=== PATIENT | male | born 1965 | race African-American/Black ===

== ENCOUNTER 2016-08-17 21:11 | Inpatient (IN) ==
[2016-08-17] MEDS ORDERED: SODIUM CHLORIDE 0.9% 1,000 ML IV STA (23:52)
[2016-08-17] MEDS ORDERED: MORPHINE 2 MG/1 ML SYRINGE IV STA (23:53)
[2016-08-18 00:40] LABS: Basophils % 0.2 % (0.0-0.8); Eosinophils % 0.1 % (0.00-10.9); Hematocrit 31.2 VOL% (42.0-52.0); Hemoglobin 10.7 GM/DL (14.0-18.0); Immature Granulocytes % 0.5 %; Immature Granulocytes Absolute 0.06 #; Lymphocytes # 1.8 10*3/uL (1.4-4.0); Lymphocytes % 15.9 % (21.2-54.2); Mean Corpuscular HGB Conc 34.3 GM/DL (32-36); Mean Corpuscular Hemoglobin 30 PG (27-34); Mean Platelet Volume 9.8 FL (9.6-12.0); Monocytes % 8.6 % (1.7-12.7); Neutrophils # 8.5 10*3/uL (1.4-7.4); Neutrophils % 74.7 % (38.7-73.9); Platelet Count 355 T/CUMM (130-400); Red Blood Count 3.63 MC/CUMM (3.8-5.5); Red Cell Distribution Width 12.5 % (9.3-17.3); White Blood Count 11.4 T/CUMM (4-12)
[2016-08-18] MEDS ORDERED: MORPHINE 2 MG/1 ML SYRINGE ONE (00:40)
[2016-08-18 00:51] LABS: Osmolality,Calculated 275.4 MOS/KG (273-304); Potassium 3.9 MMOL/L (3.5-5.1)
[2016-08-18] MEDS ORDERED: cefTRIAXone 1,000 MG in SODIUM CHLORIDE 0.9% 100 ML IV STA (01:11)
[2016-08-18] MEDS ORDERED: GLUCAGON 1 MG VIAL IM PRN (01:38)
[2016-08-18] MEDS ORDERED: ONDANSETRON 4 MG/2 ML VIAL IV PRN (01:38)
[2016-08-18] MEDS ORDERED: ZALEPLON 5 MG CAPSULE PO PRN (01:38)
[2016-08-18] MEDS ORDERED: DEXTROSE 50% 25 GM/50 ML VIAL IV PRN (01:38)
[2016-08-18] MEDS ORDERED: ACETAMINOPHEN 325 MG TABLET PO PRN (01:38)
--- NOTE | 2016-08-18 01:45 | Hospitalist History & Physical ---
Assessment and Plan - Time spent with patient Time spent with patient: Greater than 30 minutes (1) Cellulitis of foot, right Status: Acute Assessment and plan: Admitted to general medical floor. Start vancomycin and Zosyn. Consult surgery for evaluation of potential incision and drainage. Control blood sugars with Accu-Cheks and sliding scale insulin. Resume applicable home medications. Monitor renal function. Current Visit: Yes (2) DM2 (diabetes mellitus, type 2) Status: Chronic Current Visit: Yes Qualifiers: Diabetes mellitus complication status: with kidney complications Diabetes mellitus detention insulin use: with detention use Chronic kidney disease stage: stage 2 (mild) (3) HTN (hypertension) Status: Chronic Current Visit: Yes Qualifiers: Hypertension type: essential hypertension Qualified Code(s): I10 - Essential (primary) hypertension (4) Gout Status: Chronic Current Visit: Yes Qualifiers: Gout site: foot Laterality: right Chronicity: chronic (5) CKD (chronic kidney disease) stage 2, GFR 60-89 ml/min Status: Chronic Assessment and plan: Hold lisinopril and hydrochlorothiazide. Avoid nephrotoxic medications. Pharmacy consult for vancomycin dosing. Monitor renal function for acute worsening. Current Visit: Yes History of Present Illness Chief complaint: right foot pain History of present illness: Mr. Lopez is a 51 year old male with a PMHx of HTN, gout, and IDDM, who reports to the ED with complaints of swelling and a burning feeling to his right foot, rubin, and calf since 3 days ago. Pt has not experienced anything like this before and is different from his previous episodes of gout. Pt denies fever, vomiting, and taking any pain medications for it. He receives his primary care at [facility]. He reports worsening pain and tenderness in the foot with swelling and erythema. Symptoms began 3 days ago and were localized in the medial aspect of the right foot overlying the first meta tarsal joint. Since that time the pain and swelling have increased to involve the forefoot. There is a significant size difference between the right and left foot. There is warmth that extends up the right leg. There is no streaking. There is some fluctuance to the right lower extremity over the foot without any dawna discharge or pus. There is no entry wound or foreign body noted. Symptoms are severe, progressive, and worsening over the last 3 days. His Home medications were reviewed and reconciled. Home Medications Medication Instructions Recorded Confirmed Type Allopurinol 300 mg PO DAILY 02/16/15 02/16/15 History Amlodipine Besylate 5 mg PO DAILY 02/16/15 02/16/15 History Colchicine 0.6 mg PO DAILY #30 capsule 02/16/15 Rx HYDROcodone/ACETAMIN 10-325 [[place] 1 tablet PO Q6H #20 tablet 02/16/15 Rx 10-325] Ibuprofen Tab [Motrin Tab] 800 mg PO Q6H #40 tablet 02/16/15 Rx Insulin Glargine [Lantus] 10 unit SUBCUT BEDTIME 02/16/15 02/16/15 History Lisinopril/Hctz 20-12.5 [Prinzide 1 tablet PO DAILY 02/16/15 02/16/15 History 20-12.5] metFORMIN [Glucophage] 1,000 mg PO DAILY W/BREAKFAST 02/16/15 02/16/15 History Allergies Allergy/AdvReac Type Severity Reaction Status Date / Time No Known Allergies Allergy Verified 02/16/15 16:45 Medical,Surgical,& Family Hx - Medical History Cardio: History of: Hypertension Endocrine: History of: Diabetes Mellitus (IDDM) Rheumatology: History of;: Gout - Surgical History Orthopedic Surgeries: Surgical HX of;: Orthopedic Surgery (Bunion excision) - Family History Family History: Reports;: Family Diabetes, Family Hypertension - Social History Smoking Status: Never smoker Frequency of Alcohol Use: None Type of Drug Use: None Marital Status: Lives With:: Spouse Functional capacity: independent ambulation 12 point system: reviewed and no additional remarkable complaints except as stated - Musculoskeletal Musculoskeletal: Present: as per HPI, joint swelling Exam - Constitutional Vitals: Period Temp Pulse Resp BP Sys/Poon Pulse Ox Last 24 Hr 99.2 F-99.2 F 125-125 18-20 188-188/121-121 97 Exam: Constitutional System: Mild distress. No tremulousness. Head: Normocephalic, atraumatic. Ears, Nose and Throat System: No pain or tenderness. No epistaxis or discharge Eyes System: Pupils equal, round, and reactive. Extraocular muscles intact. Neck: Supple, without adenopathy, No jugular venous distention. No thyromegaly, neck mass, or prior surgery apparent. Respiratory System: Chest clear to auscultation. Cardiovascular System: Heart with regular rate and rhythm. No murmur. GI System: Abdomen soft, nontender. Normo active bowel sounds present. Musculoskeletal System: limbs with minimal right side pedal edema. Full distal pulses. Induration redness swelling and warmth to touch noted in the right midfoot over the first metatarsal. No dawna drainage or pus. No fluctuant fluid collection noted. Neurological System: No discernable sensory deficit. No aphasia Psychiatric System: Conversation is rational Results - Labs CBC & BMP: 08/17/16 00:18 08/17/16 00:18 Lab Results: I have reviewed the past 24 hour labs - Diagnostic Findings Procedure: X-ray: image reviewed by me, report reviewed by me
[2016-08-18] MEDS ORDERED: VANCOMYCIN INJ 1,000 MG in SODIUM CHLORIDE 0.9% 250 ML IV SCH (02:00)
--- NOTE | 2016-08-18 02:18 | Emergency Department Note ---
Augustin Duke Manpreet, am scribing for, and in the presence of, Viola Cardenas DO 23:48. ITheresa Whitney, DO, personally performed the services described in this documentation, ascribed by Ivan Ruffin in my presence, and it is both accurate and complete . Arrival - Arrival Chief Complaint: Non-Specific Stated Complaint: right foot/cav/schin trobbing ED Nursing Triage Note: right foot swollen, rubin and calf to right leg burning and dry cough Mode of Arrival: Ambulatory Limitations: No Limitations Source: Patient - History of Present Illness HPI Narrative: Pt is a 51 y/o male, PMHx of HTN, gout, and IDDM, who reports to the ED with CC of swelling and a burning feeling to his right foot, rubin, and calf since 3 days ago. Pt has not experienced anything like this before and is different from his previous episodes of gout. Pt denies fever, vomiting, and taking any pain medications for it. No other pains/complaints reported to ED. Onset (ago): day(s) Consistency: constant Severity: moderate Severity scale (1-10): 4 Quality: burning Allergies/Adverse Reactions: Allergies Allergy/AdvReac Type Severity Reaction Status Date / Time No Known Allergies Allergy Verified 02/16/15 16:45 Home Medications: Home Medications Medication Instructions Recorded Confirmed Type Allopurinol 300 mg PO DAILY 02/16/15 02/16/15 History Amlodipine Besylate 5 mg PO DAILY 02/16/15 02/16/15 History Colchicine 0.6 mg PO DAILY #30 capsule 02/16/15 Rx HYDROcodone/ACETAMIN 10-325 [[place] 1 tablet PO Q6H #20 tablet 02/16/15 Rx 10-325] Ibuprofen Tab [Motrin Tab] 800 mg PO Q6H #40 tablet 02/16/15 Rx Insulin Glargine [Lantus] 10 unit SUBCUT BEDTIME 02/16/15 02/16/15 History Lisinopril/Hctz 20-12.5 [Prinzide 1 tablet PO DAILY 02/16/15 02/16/15 History 20-12.5] metFORMIN [Glucophage] 1,000 mg PO DAILY W/BREAKFAST 02/16/15 02/16/15 History Review of System - Review of System 12 point system: reviewed and no additional remarkable complaints except as stated - Review of System Constitutional: Absent: chills, diaphoresis, fever Respiratory: Absent: respiratory distress Cardiovascular: Absent: chest pain, dyspnea on exertion Gastrointestinal: Present: abdominal pain. Absent: nausea, vomiting Musculoskeletal: Present: leg pain (Pain to calf and rubin), other (Right foot edema; Buring to rubin and calf.) Neurological: Absent: headache, weakness Medical,Surgical,& Family Hx - Medical History Cardio: History of: Hypertension Endocrine: History of: Diabetes Mellitus (IDDM) Rheumatology: History of;: Gout - Social History Smoking Status: Never smoker Frequency of Alcohol Use: None Type of Drug Use: None Exam Vital Signs: Vital Signs Temperature 99.2 F 08/17/16 22:45 Pulse Rate 125 H 08/17/16 22:45 Respiratory Rate 18 08/17/16 22:45 Blood Pressure 188/121 08/17/16 22:45 O2 Sat by Pulse Oximetry 97 08/17/16 22:10 - General General appearance: alert - Head Head exam: Present: atraumatic, normocephalic, normal inspection - Eye Eye exam: Present: normal appearance, PERRL, EOMI - ENT ENT exam: Present: normal exam, normal oropharynx, mucous membranes moist, TM's normal bilaterally - Neck Neck exam: Present: normal inspection, full ROM, trachea midline. Absent: tenderness - Chest Chest inspection: Present: normal inspection, symmetric chest wall rise. Absent : tenderness - Respiratory Respiratory exam: Present: normal lung sounds bilaterally. Absent: accessory muscle use, rales, respiratory distress, rhonchi - Cardiovascular Cardiovascular exam: Present: normal rhythm, tachycardia, normal heart sounds. Absent: murmur, rubs, gallop - Abdominal Exam Abdominal exam: Present: soft, normal bowel sounds. Absent: distention, tenderness - Extremities Exam Extremities exam: Absent: normal inspection - Expanded Lower Right Lower Foot/toe exam: Present: tenderness, erythema, other (Right footed Edema ) - Back Exam Back exam: Present: normal inspection, full ROM. Absent: tenderness - Neurological Exam Neurological exam: Present: alert, oriented X3, CN II-XII intact, reflexes normal - Psychiatric Psychiatric exam: Present: normal affect, normal mood - Skin Skin exam: Present: warm, dry, intact, normal color. Absent: pallor Course Course Narrative: Concern for cellulitis versus gout versus DVT. However given the redness of the foot the warmth the swelling and heart rate elevation as well as low-grade fever I am leaning more toward cellulitis in this patient especially with a left shift. We will go ahead and give antibiotics culture and give fluids patient heart rate responsive to fluids will admit to hospitalist service. - Reevaluation(s) Reevaluation #1: After pain medication patient pain has improved mildly. Heart rate is decreased. Results - Labs CBC & BMP: 08/17/16 00:18 08/17/16 00:18 Lab Results: I have reviewed the patients labs Labs: Laboratory Tests 08/17/16 08/17/16 00:18 00:18 WBC 11.4 RBC 3.63 L Hgb 10.7 L Hct 31.2 L MCV 86.0 L Plt Count 355 MPV 9.8 Neut % (Auto) 74.7 H Lymph % (Auto) 15.9 L Neut # (Auto) 8.5 H Monona # (Auto) 1.0 H Sodium 133 L Potassium 3.9 Chloride 98 Carbon Dioxide 25 Creatinine 1.60 H Glucose 250 H Disposition Clinical Impression: Cellulitis of foot, right Case discussed with: patient Disposition: Still a Patient Condition: Stable
[2016-08-18] MEDS: PIPERACILLIN/TAZOBACTAM 3,375 MG in SODIUM CHLORIDE 0.9% 100 ML IV SCH ×4 (04:35→22:22)
[2016-08-18] MEDS: ACETAMINOPHEN 325 MG TABLET PO PRN ×3 (04:35→20:17)
[2016-08-18] MEDS: SODIUM CHLORIDE 0.9% 1,000 ML IV SCH ×2 (04:35→18:12)
[2016-08-18] MEDS: MORPHINE 2 MG/1 ML SYRINGE IV PRN ×4 (04:35→18:13)
[2016-08-18 05:41] LABS: Basophils % 0.1 % (0.0-0.8); Eosinophils % 0.1 % (0.00-10.9); Hematocrit 27.8 VOL% (42.0-52.0); Hemoglobin 9.3 GM/DL (14.0-18.0); Immature Granulocytes % 0.8 %; Immature Granulocytes Absolute 0.09 #; Lymphocytes # 1.9 10*3/uL (1.4-4.0); Lymphocytes % 16.7 % (21.2-54.2); Mean Corpuscular HGB Conc 33.5 GM/DL (32-36); Mean Corpuscular Hemoglobin 29 PG (27-34); Mean Corpuscular Volume 86.6 FL (87-102); Mean Platelet Volume 9.9 FL (9.6-12.0); Monocytes # 1.2 10*3/uL (0.11-0.8); Monocytes % 10.9 % (1.7-12.7); Neutrophils # 8.1 10*3/uL (1.4-7.4); Neutrophils % 71.4 % (38.7-73.9); Platelet Count 336 T/CUMM (130-400); Red Blood Count 3.21 MC/CUMM (3.8-5.5); Red Cell Distribution Width 12.4 % (9.3-17.3); White Blood Count 11.3 T/CUMM (4-12)
[2016-08-18 06:17] LABS: Calcium 8.8 MG/DL (8.5-10.1); Magnesium 1.7 MG/DL (1.8-2.4)
--- NOTE | 2016-08-18 07:26 | XRay Report ---
History: Cellulitis. Informed consent and swelling right foot Date: 08/18/2016 Study: Right foot 2 views Comparison exam: September 22, 2013 There is some mild lytic change of the cortex along the medial border of the distal first metatarsal compatible with osteomyelitis. There is soft tissue swelling medial to this area. There is moderate joint space narrowing and osteophyte formation at the first MTP joint. There is no acute fracture or dislocation. Impression: There is some lytic change along the medial border of the distal first right metatarsal compatible with osteomyelitis, with adjacent soft tissue swelling PROCEDURE INTERPRETED AT [facility] DEPARTMENT OF RADIOLOGY Final Report Signed by: Dr. Dahiana Lerma
[2016-08-18] MEDS: INSULIN LISPRO 100 UNIT/ML SUBCUT SCH ×4 (08:06→20:18)
[2016-08-18] MEDS: amLODIPine 5 MG TABLET PO SCH (08:08)
[2016-08-18] MEDS: ENOXAPARIN 40 MG/0.4 ML SYRINGE SUBCUT SCH (08:08)
[2016-08-18] MEDS: PANTOPRAZOLE 40 MG TABLET PO SCH (08:08)
[2016-08-18] MEDS: ALLOPURINOL 300 MG TABLET PO SCH (08:08)
[2016-08-18] MEDS: COLCHICINE 0.6 MG TABLET PO SCH (08:08)
--- NOTE | 2016-08-18 08:15 | Ultrasound Report ---
Exam: Bilateral lower extremity venous Doppler ultrasound Comparison: None Clinical history: Pain and swelling Technique: Duplex scan of the lower extremity veins using B-mode/grayscale scaled imaging and Doppler spectral analysis and color flow. Findings: Major venous structures of the lower extremities demonstrate a normal course and caliber. Normal color-flow study and spectral analysis. There is normal compression and augmentation of bilateral common femoral, superficial femoral and popliteal veins. The proximal bilateral greater saphenous veins appear to be patent. Impression: No evidence to suggest deep venous thrombosis within either lower extremity. Ultrasound images were captured and stored. PROCEDURE INTERPRETED AT [facility] DEPARTMENT OF RADIOLOGY Final Report Signed by: Dr. Shania Santillan
[2016-08-18] MEDS: VANCOMYCIN INJ 1,750 MG in SODIUM CHLORIDE 0.9% 500 ML IV SCH ×2 (08:47→20:16)
--- NOTE | 2016-08-18 10:03 | General Surgery Consult Note ---
Assessment and Plan (1) Cellulitis of foot, right Status: Acute Assessment and plan: Images reviewed by Dr. Schulte who felt the changes on x-ray are likely postoperative with recent bunionectomy - pt afebrile without leukocytosis. Patient currently on Zosyn, may consider adding vancomycin for MRSA coverage if infection is continued concern. No clear evidence of abscess which would require debridement at this time. Recommend also considering gout treatment to see if his symptoms improved. Advanced imaging may be required if clinical response fails. Patient should follow-up with his surgeon provided no immediate complications arise requiring surgical intervention. Will follow. Current Visit: Yes History of Present Illness Chief complaint: Right foot pain History of present illness: Mr. Lopez is a 51 year old male PMH HTN, IDDM, gout and CKD2 who reports he is appx 6 wk s/p right bunionectomy. He reports his been actually never completely healed. [facility] had [facility] at which time they "cleaned it up" with what sounds like a sharp debridement. He was not started on any antibiotics or informed of any concern for infection at that time. 3-4 d ago when he developed increased pain and edema of right foot over MTP joint. Pain was severe, constant, aching and prompted ED visit. Home Medications Medication Instructions Recorded Confirmed Type Allopurinol 300 mg PO DAILY 02/16/15 02/16/15 History Amlodipine Besylate 5 mg PO DAILY 02/16/15 02/16/15 History Colchicine 0.6 mg PO DAILY #30 capsule 02/16/15 Rx HYDROcodone/ACETAMIN 10-325 [[place] 1 tablet PO Q6H #20 tablet 02/16/15 Rx 10-325] Ibuprofen Tab [Motrin Tab] 800 mg PO Q6H #40 tablet 02/16/15 Rx Insulin Glargine [Lantus] 10 unit SUBCUT BEDTIME 02/16/15 02/16/15 History Lisinopril/Hctz 20-12.5 [Prinzide 1 tablet PO DAILY 02/16/15 02/16/15 History 20-12.5] metFORMIN [Glucophage] 1,000 mg PO DAILY W/BREAKFAST 02/16/15 02/16/15 History Allergies Allergy/AdvReac Type Severity Reaction Status Date / Time No Known Allergies Allergy Verified 02/16/15 16:45 Medical,Surgical,& Family Hx - Medical History Cardio: History of: Hypertension Endocrine: History of: Diabetes Mellitus (IDDM) Rheumatology: History of;: Gout - Surgical History Orthopedic Surgeries: Surgical HX of;: Orthopedic Surgery (Bunion excision) - Family History Family History: Reports;: Family Diabetes, Family Hypertension - Social History Smoking Status: Never smoker Frequency of Alcohol Use: None Type of Drug Use: None - Constitutional Constitutional: Present: as per HPI - Gastrointestinal Gastrointestinal: Absent: diarrhea, nausea, vomiting - Genitourinary Genitourinary: Absent: dysuria, flank pain, hematuria - Musculoskeletal Musculoskeletal: Absent: arthralgias Exam - Constitutional Vitals: Period Temp Pulse Resp BP Sys/Poon Pulse Ox Last 24 Hr 97.7 F-101.4 F 90-105 16-20 145-164/82-100 92-99 General appearance: no acute distress - Head Head exam: Present: normal inspection, normocephalic, atraumatic - Neck Neck exam: Present: trachea midline - Respiratory Respiratory exam: Present: clear to auscultation bilaterally - Cardiovascular Cardiovascular exam: Present: RRR - GI/Abdominal GI/Abdominal exam: Present: normal bowel sounds, soft. Absent: distended, tenderness - Extremities Exam Extremities exam: Present: other (Left foot with callus formation at the tip of the first and second toes with duskiness beneath. Dorsalis pedis pulses palpable. Right foot with callus over the medial aspect of the MTP joint with diffuse hyperemia without significant erythema. Patient is diffusely tender along the first metatarsal into the MTP. No palpable fluid collection.). Absent: calf tenderness, edema - Neurological Exam Neurological exam: Present: alert, oriented X3 Speech: Present: normal - Skin Skin exam: Present: normal color, warm Results - Labs CBC & BMP: 08/18/16 05:06 08/18/16 05:06 - Diagnostic Findings Procedure: X-ray: image reviewed by me, report reviewed by me
[2016-08-18 13:23] LABS: HIV Antigen/Antibody Result Nonreactive (Nonreactive); Hepatitis C Virus Ab Quant 0.21 Index; Hepatitis C Virus Ab Result Negative (Negative)
[2016-08-18 14:47] LABS: Hepatitis B Surface Ag Result Negative (Negative)
--- NOTE | 2016-08-18 15:40 | Magnetic Resonance Report ---
MRI right foot Indication: Cellulitis, recent surgery and pain Technique: Axial sagittal and coronal imaging of the foot is performed without contrast using multiple sequences. Findings: Bunionectomy changes are present of the distal first metatarsal with edema present in the distal first metatarsal becoming less prominent extending proximally. Near the surgical site more focal fluid signal is seen. Remaining osseous marrow signal appears within normal limits. There is a moderate joint effusion at the first metatarsophalangeal joint. There is edema present throughout the foot most prominent on the dorsum of the foot. There is also edema within the muscles diffusely. Tendons appear intact. Impression: Postsurgical changes distal first metatarsal with abnormal signal in the first metatarsal which could indicate osteomyelitis. More focal fluid signal is present in the distal first metatarsal likely bone abscess. Diffuse edema and swelling consistent with cellulitis and myositis. No focal soft tissue abscess is seen. PROCEDURE INTERPRETED AT [facility] DEPARTMENT OF RADIOLOGY Final Report Signed by: Dr. Tiago Ardon
--- NOTE | 2016-08-18 15:44 | Hospitalist Progress Note ---
Assessment and Plan - Time spent with patient Time spent with patient: Greater than 30 minutes (1) Osteomyelitis Status: Acute Assessment and plan: Continue Vanco and Zosyn. MRI is concerning for osteomyelitis focal abscess myositis and cellulitis. We will keep the patient n.p.o. for any planned procedure at the request of surgery. Current Visit: Yes (2) CKD (chronic kidney disease) stage 2, GFR 60-89 ml/min Status: Chronic Assessment and plan: We will continue to follow. Current Visit: Yes (3) DM2 (diabetes mellitus, type 2) Status: Chronic Assessment and plan: Continue current management. Current Visit: Yes Qualifiers: Diabetes mellitus complication status: with kidney complications Diabetes mellitus penitentiary insulin use: with terminal makeup operator use Chronic kidney disease stage: stage 2 (mild) (4) Gout Status: Chronic Assessment and plan: Does not appear to be gout however continuing gout medications. Current Visit: Yes Qualifiers: Gout site: foot Laterality: right Chronicity: chronic Hospitalist: Subjective Interval history: Admitted overnight with right foot pain and fever. MRI performed. States it is in severe pain however denies the pain is similar to gout. Exam - Constitutional Vitals: Period Temp Pulse Resp BP Sys/Poon Pulse Ox Last 24 Hr 97.7 F-101.4 F 90-105 16-20 145-164/82-100 92-99 General appearance: no acute distress - Head Head exam: Present: normocephalic, atraumatic - Eye Eye exam: Present: EOMI Pupils: Present: MAIN - ENT ENT exam: Present: normal exam - Neck Neck exam: Present: normal inspection - Respiratory Respiratory exam: Present: clear to auscultation bilaterally. Absent: rhonchi, wheezes - Cardiovascular Cardiovascular exam: Present: regular rate and rhythm. Absent: gallop, rubs, systolic murmur - GI/Abdominal GI/Abdominal exam: Present: normal bowel sounds, soft. Absent: distended, firm , guarding, tenderness, rebound - Extremities Exam Extremities exam: Present: normal inspection, other (Right MCP joints is tender and very warm to touch. No erythema.). Absent: calf tenderness, edema Results - Labs CBC & BMP: 08/18/16 05:06 08/18/16 05:06 Lab Results: I have reviewed the past 24 hour labs
[2016-08-18] MEDS: hydrALAZINE 20 MG/1 ML VIAL IV PRN (16:33)
[2016-08-18] MEDS: INSULIN GLARGINE 100 UNIT/ML SUBCUT SCH (20:17)
[2016-08-19] MEDS: ACETAMINOPHEN 325 MG TABLET PO PRN (04:55)
[2016-08-19] MEDS: PIPERACILLIN/TAZOBACTAM 3,375 MG in SODIUM CHLORIDE 0.9% 100 ML IV SCH ×3 (04:57→18:37)
[2016-08-19 06:38] LABS: Basophils % 0.2 % (0.0-0.8); Eosinophils # 0.1 10*3/uL (0.0-0.87); Eosinophils % 0.9 % (0.00-10.9); Hematocrit 28.4 VOL% (42.0-52.0); Hemoglobin 9.5 GM/DL (14.0-18.0); Immature Granulocytes % 0.7 %; Immature Granulocytes Absolute 0.07 #; Lymphocytes # 1.3 10*3/uL (1.4-4.0); Lymphocytes % 12.2 % (21.2-54.2); Mean Corpuscular HGB Conc 33.5 GM/DL (32-36); Mean Corpuscular Hemoglobin 29 PG (27-34); Mean Corpuscular Volume 85.5 FL (87-102); Monocytes # 0.9 10*3/uL (0.11-0.8); Monocytes % 8.4 % (1.7-12.7); Neutrophils % 77.6 % (38.7-73.9); Platelet Count 320 T/CUMM (130-400); Red Blood Count 3.32 MC/CUMM (3.8-5.5); Red Cell Distribution Width 12.6 % (9.3-17.3); White Blood Count 10.3 T/CUMM (4-12)
[2016-08-19 07:21] LABS: Calcium 8.7 MG/DL (8.5-10.1); Osmolality,Calculated 281.7 MOS/KG (273-304); Potassium 3.9 MMOL/L (3.5-5.1)
[2016-08-19] MEDS: ALLOPURINOL 300 MG TABLET PO SCH (08:29)
[2016-08-19] MEDS: amLODIPine 5 MG TABLET PO SCH (08:29)
[2016-08-19] MEDS: PANTOPRAZOLE 40 MG TABLET PO SCH (08:29)
[2016-08-19] MEDS: COLCHICINE 0.6 MG TABLET PO SCH (08:30)
[2016-08-19] MEDS: ENOXAPARIN 40 MG/0.4 ML SYRINGE SUBCUT SCH (08:31)
[2016-08-19] MEDS: VANCOMYCIN INJ 1,750 MG in SODIUM CHLORIDE 0.9% 500 ML IV SCH (08:32)
[2016-08-19] MEDS: INSULIN LISPRO 100 UNIT/ML SUBCUT SCH ×4 (08:36→22:04)
--- NOTE | 2016-08-19 11:03 | EKG Report ---
Stationary ECG Study [facility] Test Date: 08/19/2016 11:02:53 AM Pat Name: ROSA BERNAL Department: Room: 233 Gender: M Curriculum Specialist: : 1965 Requested by: Graciela Tamayo Order Number: [id number] Reading MD: YOLI DICK Intervals [place] Rate: 99 P: 49 MA: 157 QRS: 40 QRSD: 109 T: 87 QT: 345 QTc: 401 Interpretive Statements SINUS RHYTHM POOR R-WAVE PROGRESSION Electronically Signed On 08-19-16 18:31:31 CDT by YOLI DICK [email or web address]
--- NOTE | 2016-08-19 13:46 | General Surgery Progress Note ---
Assessment and Plan (1) Osteomyelitis Status: Acute Assessment and plan: Impression: Possible osteomyelitis of the right first metatarsal head. Plan: The patient is febrile and bacteremic. MRI reviewed. There are postoperative changes of the first metatarsal head with an area suspicious for osteo-and possibly even a small abscess involving the bone. There is no obvious necrosis or significant infection that can be seen of the great toe externally. Will attempt to save the right great toe. Plan for right first metatarsal resection and drainage of the area. He understands he might eventually require amputation of the right great toe when there might be some functional deficit of the great toe after the surgery. Discussed the procedure has performed and anticipated recovery. Risk of the procedure including bleeding, infection, damage to surrounding structures, need for further surgery were all discussed in detail and he wants to proceed. Current Visit: Yes Subjective Patient reports: Present: no new complaints Narrative: No change in complaints. Patient has been febrile overnight. Exam - Constitutional Vitals: Period Temp Pulse Resp BP Sys/Poon Pulse Ox Last 24 Hr 99.6 F-103.5 F 99-134 18-20 133-160/69-100 93-96 General appearance: no acute distress - Head Head exam: Present: normocephalic - Respiratory Respiratory exam: Present: clear to auscultation bilaterally - Cardiovascular Cardiovascular exam: Present: RRR - GI/Abdominal GI/Abdominal exam: Present: soft - Extremities Exam Extremities exam: Present: other (No erythema or obvious drainage. Foot benzol still operator to palpation.) - Neurological Exam Neurological exam: Present: alert, oriented X3 Speech: Present: normal - Skin Skin exam: Present: normal color Results - Labs CBC & BMP: 08/19/16 06:12 08/19/16 06:12 Lab Results: I have reviewed the past 24 hour labs
[2016-08-19] MEDS ORDERED: LIDOCAINE 1% 5 ML VIAL ONE (14:00)
[2016-08-19] MEDS ORDERED: PHENYLEPHRINE 1 MG/10 ML SYRINGE IV ONE (14:00)
[2016-08-19] MEDS ORDERED: PROPOFOL 200 MG/20 ML VIAL IV ONE (14:00)
[2016-08-19] MEDS ORDERED: ONDANSETRON 4 MG/2 ML VIAL ONE (14:00)
[2016-08-19] MEDS ORDERED: KETOROLAC 30 MG/1 ML VIAL ONE (14:00)
--- NOTE | 2016-08-19 14:57 | Anesthesia Post-Op ---
Anesthesia Post OP - Post Ansesthetic Evaluation Patient seen in post op: Yes Resp: within normal limits CV: within normal limits Mental: within normal limits Temp: within normal limits Earp-[id number]-[id number]: within normal limits Nausea and Vomiting: within normal limits Pain: within normal limits
[2016-08-19] MEDS ORDERED: SEVOFLURANE 1 UNIT/15 MINUTE INH ONE (15:00)
[2016-08-19] MEDS ORDERED: fentaNYL 100 MCG/2 ML VIAL ONE (15:01)
[2016-08-19] MEDS ORDERED: MIDAZOLAM 2 MG/2 ML VIAL ONE (15:01)
[2016-08-19] MEDS ORDERED: LACTATED RINGERS 1,000 ML IV ONE (15:01)
--- NOTE | 2016-08-19 15:08 | Operative Note ---
Date of procedure: 08/19/16 Pre-op diagnosis: Right first metatarsal osteomyelitis Post-op diagnosis: same Procedure: Procedure performed: #1 resection of right first metatarsal head #2 excisional debridement of necrotic subcutaneous tissue and fascia of the right foot. Area debrided was 5 x 3 cm Procedure in detail: After informed consent was obtained patient was taken operating suite placed upon the operating table. After general anesthesia was induced the right foot was prepped and draped in usual sterile fashion. After procedural pause elliptical incision was made incorporating the previous bunionectomy site and extended along the anterior medial aspect of the right foot over the first metatarsal. As I dissected into the subcutaneous tissue below the bunionectomy site I encountered gross purulence. Cultures were obtained and sent. Continued debridement of the nonviable soft tissue extending and including some of the fascia. This purulence extended down to the metatarsophalangeal joint space and on the medial aspect of the metatarsal head there was soft osteomyelitic bone. The metatarsal was dissected away from the surrounding tissue and its ligamental attachments and a microsagittal saw was used to transect the metatarsal in the mid shaft. Metatarsal bone was then removed along with the osteomyelitic segment. There was a whitish appearance at the joint space probably representing old attack of gouty arthritis. All of the nonviable tissue was removed. There was good hemostasis with spot electrocautery. The wound was irrigated and suctioned. It was packed with 4 x 4 fluff and sterile dressings applied. The patient was extubated and taken recovery room in stable condition. All lap and needle counts were correct at the end of the case. Anesthesia: GETA Surgeon / Physician: Keron Henson Estimated blood loss: other (Less than 10 cc) Specimens: other (Cultures) Condition: stable Disposition: PACU Results - Labs CBC & BMP: 08/19/16 06:12 08/19/16 06:12 Discharge Plan - Discharge Medications No Action Allopurinol 300 mg PO DAILY metFORMIN [Glucophage] 1,000 mg PO DAILY W/BREAKFAST Lisinopril/Hctz 20-12.5 [Prinzide 20-12.5] 1 tablet PO DAILY Amlodipine Besylate 5 mg PO DAILY Insulin Glargine [Lantus] 10 unit SUBCUT BEDTIME Colchicine 0.6 mg PO DAILY #30 capsule Ibuprofen Tab [Motrin Tab] 800 mg PO Q6H #40 tablet HYDROcodone/ACETAMIN 10-325 [[place] 10-325] 1 tablet PO Q6H #20 tablet - Follow Up or Referral - Forms/Instructions
--- NOTE | 2016-08-19 15:50 | Hospitalist Progress Note ---
Assessment and Plan - Time spent with patient Time spent with patient: Greater than 30 minutes (1) Osteomyelitis Status: Acute Assessment and plan: Defer to ID and Surgery. Current Visit: Yes (2) CKD (chronic kidney disease) stage 2, GFR 60-89 ml/min Status: Chronic Assessment and plan: We will continue to follow. Current Visit: Yes (3) DM2 (diabetes mellitus, type 2) Status: Chronic Assessment and plan: Continue current management. Current Visit: Yes Qualifiers: Diabetes mellitus complication status: with kidney complications Diabetes mellitus jail insulin use: with parts counterman use Chronic kidney disease stage: stage 2 (mild) (4) Gout Status: Chronic Assessment and plan: Does not appear to be gout however continuing gout medications. Current Visit: Yes Qualifiers: Gout site: foot Laterality: right Chronicity: chronic Hospitalist: Subjective Interval history: Continue low grade fever of 100F. Mr. albert is back from surgery. His surgical dressing over his foot appears very comfortable. Exam - Constitutional Vitals: Period Temp Pulse Resp BP Sys/Poon Pulse Ox Last 24 Hr 98.9 F-103.5 F 95-134 14-20 107-160/68-100 93-100 General appearance: no acute distress - Head Head exam: Present: normocephalic, atraumatic - Eye Eye exam: Present: EOMI Pupils: Present: MAIN - ENT ENT exam: Present: normal exam - Neck Neck exam: Present: normal inspection - Respiratory Respiratory exam: Present: clear to auscultation bilaterally. Absent: rhonchi, wheezes - Cardiovascular Cardiovascular exam: Present: regular rate and rhythm. Absent: gallop, rubs, systolic murmur - GI/Abdominal GI/Abdominal exam: Present: normal bowel sounds, soft. Absent: distended, firm , guarding, tenderness, rebound - Extremities Exam Extremities exam: Present: normal inspection, other (Right foot surgical dressing). Absent: calf tenderness, edema Results - Labs CBC & BMP: 08/19/16 06:12 08/19/16 06:12 Lab Results: I have reviewed the past 24 hour labs
--- NOTE | 2016-08-19 16:12 | Infectious Disease Consult ---
Assessment and Plan (1) Cellulitis of foot, right Status: Acute Assessment and plan: Associated with a osteomyelitis of the first metatarsal head. MSSA infection is being treated. Current Visit: Yes (2) Fever Status: Acute Assessment and plan: Likely due to MSSA septicemia. Antibiotics as below. Current Visit: Yes (3) Osteomyelitis Status: Acute Assessment and plan: Likely due to the MSSA cultured from the blood. On antibiotics as below. Current Visit: Yes (4) CKD (chronic kidney disease) stage 2, GFR 60-89 ml/min Status: Chronic Assessment and plan: Worsening renal function possibly related to vancomycin therapy. Will stop vancomycin. Continue to monitor renal function. Current Visit: Yes (5) DM2 (diabetes mellitus, type 2) Status: Chronic Assessment and plan: Possibly uncontrolled. We can see what the A1c is. Current Visit: Yes Qualifiers: Diabetes mellitus complication status: with kidney complications Diabetes mellitus terminal gauger insulin use: with fdc use Chronic kidney disease stage: stage 2 (mild) (6) HTN (hypertension) Status: Chronic Current Visit: Yes Qualifiers: Hypertension type: essential hypertension Qualified Code(s): I10 - Essential (primary) hypertension (7) MSSA (methicillin susceptible Staphylococcus aureus) septicemia Status: Acute Assessment and plan: This is due to infected right foot he has osteomyelitis of the first metatarsal head and also surrounding cellulitis. Recommendations: 1. We can stop vancomycin since this is not MRSA, further the patient has worsening renal function on vancomycin 2. Repeat blood cultures 2 sets 3. Echocardiogram to ensure no associated endocarditis 4. Will continue the Zosyn for now until we have final wound cultures, in case there anaerobes and/or gram negatives involved. Once final cultures come back we can de-escalate possibly to nafcillin 5. Patient informed that he will need at least 4 weeks of IV antibiotics, possibly 6 if echocardiogram is positive. Once we ascertain that repeat blood cultures are negative then we can look about putting a PICC line and arranging for outpatient antibiotics. Thank you very much for the consult. Will follow. Current Visit: Yes History of Present Illness Chief complaint: Bacteremia, osteoarthritis History of present illness: Mr. Lopez is a 51 year old male With history of diabetes who had a bunion to the right foot. He said it was I& D at the [facility] about 3 months ago. He has had a residual wound there which got infected recently. He developed redness around the area extending up the foot, and associated pain. He developed fever and malaise and so came to the hospital. He was noted to have significant infection to the foot with associated cellulitis. Blood cultures drawn on admission have come back positive for staph aureus. I am asked to assist with management. Patient has been having daily fevers even up until today. He just returned from the operating room where he had resection of the right first metatarsal head and debridement of the surrounding tissues. Home Medications Medication Instructions Recorded Confirmed Type Allopurinol 300 mg PO DAILY 02/16/15 02/16/15 History Amlodipine Besylate 5 mg PO DAILY 02/16/15 02/16/15 History Colchicine 0.6 mg PO DAILY #30 capsule 02/16/15 Rx HYDROcodone/ACETAMIN 10-325 [[place] 1 tablet PO Q6H #20 tablet 02/16/15 Rx 10-325] Ibuprofen Tab [Motrin Tab] 800 mg PO Q6H #40 tablet 02/16/15 Rx Insulin Glargine [Lantus] 10 unit SUBCUT BEDTIME 02/16/15 02/16/15 History Lisinopril/Hctz 20-12.5 [Prinzide 1 tablet PO DAILY 02/16/15 02/16/15 History 20-12.5] metFORMIN [Glucophage] 1,000 mg PO DAILY W/BREAKFAST 02/16/15 02/16/15 History Allergies Allergy/AdvReac Type Severity Reaction Status Date / Time No Known Allergies Allergy Verified 02/16/15 16:45 12 point system: reviewed and no additional remarkable complaints except as stated (Per HPI) Medical,Surgical,& Family Hx - Medical History Cardio: History of: Hypertension Neurology: No history of: Seizures Endocrine: History of: Diabetes Mellitus (IDDM) Rheumatology: History of;: Gout - Surgical History Orthopedic Surgeries: Surgical HX of;: Orthopedic Surgery (Bunion excision) - Family History Family History: Reports;: Family Diabetes, Family Hypertension - Social History Smoking Status: Never smoker Frequency of Alcohol Use: None Type of Drug Use: None Infectious Disease Exam H&P - Constitutional Vitals: Vital Signs Temp Pulse Resp BP Pulse Ox 100.0 F H 99 H 16 131/77 93 L 08/19/16 15:40 08/19/16 15:40 08/19/16 15:40 08/19/16 15:40 08/19/16 15:40 Intake and Output 08/19/16 08/19/16 08/19/16 07:59 15:59 23:59 Intake Total 100 / 100 100 / 100 Balance 100 / 100 100 / 100 Intake: IV 100 / 100 100 / 100 Zosyn 3,375 mg In Ns 100 100 / 100 100 / 100 ml @ 25 mls/hr IV Q8H [facility] Rx#:[id number] Other: Voiding Method Toilet # Voids 2 # Bowel Movements 0 Exam: General: Patient comfortab a bit drowsy having just come from the operating room HEENT: Mucous membranes pink and moist, anicteric acyanotic, MAIN, no oropharyngeal exudates Neck: Supple, no thyroid gland enlargement, no lymphadenopathy Respiratory system: Breath sounds vesicular, no crepitations or wheezes Cardiovascular: Normal S1 and S2, no murmurs appreciated Abdomen: Normal bowel sounds, soft nontender throughout, no organomegaly or mass Genitourinary: No suprapubic pain or bladder distention Extremities: Mild right leg edema, right foot bandaged Skin: No rash Reports - Labs CBC & BMP: 08/19/16 06:12 08/19/16 06:12 Labs: Laboratory Results - last 24 hr 08/19/16 08/19/16 08/19/16 06:12 06:12 06:13 WBC 10.3 RBC 3.32 L Hgb 9.5 L Hct 28.4 L MCV 85.5 L MCH 29 MCHC 33.5 RDW 12.6 Plt Count 320 MPV 10.0 Neut % (Auto) 77.6 H Lymph % (Auto) 12.2 L [place] % (Auto) 8.4 Eos % (Auto) 0.9 Baso % (Auto) 0.2 Neut # (Auto) 8.0 H Lymph # (Auto) 1.3 L [place] # (Auto) 0.9 H Eos # (Auto) 0.1 Baso # (Auto) 0.0 Immature Gran % 0.7 Nucleated RBC % 0.0 Immature Gran # 0.07 Nucleated RBCs # 0.00 ESR [place] 117 H Sodium 138 Potassium 3.9 Chloride 104 Carbon Dioxide 23 Anion Gap 14.9 BUN 20 H Creatinine 1.90 H GFR Calculation 64 BUN/Creatinine Ratio 10.00 Glucose 177 H POC Glucose Calculated Osmolality 281.7 Calcium 8.7 C-Reactive Protein 08/19/16 08/19/16 08/19/16 06:13 06:54 11:40 WBC RBC Hgb Hct MCV MCH MCHC RDW Plt Count MPV Neut % (Auto) Lymph % (Auto) [place] % (Auto) Eos % (Auto) Baso % (Auto) Neut # (Auto) Lymph # (Auto) [place] # (Auto) Eos # (Auto) Baso # (Auto) Immature Gran % Nucleated RBC % Immature Gran # Nucleated RBCs # ESR [place] Sodium Potassium Chloride Carbon Dioxide Anion Gap BUN Creatinine GFR Calculation BUN/Creatinine Ratio Glucose POC Glucose 181 H 166 H Calculated Osmolality Calcium C-Reactive Protein 21.30 H - Reports Microbiology: Microbiology 08/19/16 Unknown MRSA (PCR) - Final Blood MRSA Negative Staph aureus Positive 08/19/16 Unknown MRSA (PCR) - Final Blood MRSA Negative Staph aureus Positive - Diagnostic Findings Procedure: MRI: report reviewed by me (Osteomyelitis of rasp right first metatarsal, cellulitis of surrounding tissues), X-ray: report reviewed by me ( Osteo-myelitis of right first metatarsal )
--- NOTE | 2016-08-19 16:29 | Event Note ---
POC POD 0 s/p right 1st MT head resection. Pt reports pain controlled. No chest pain , SOB, wheeze, cough, abdominal pain, N/V. Has not attempted to eat yet. VSS Heart RRR Lungs CTAB Abd: soft, NTND with BS prsent Right foot: dressing c/d/i. Great toe warm with BCR. Ext bilateral extremities soft and NT without pedal edema. A/P Stable at POC. Advance to diabetic as tolerated. Appreciate ID recs. Cultures pending.
[2016-08-19] MEDS: INSULIN GLARGINE 100 UNIT/ML SUBCUT SCH (22:02)
[2016-08-20] MEDS: PIPERACILLIN/TAZOBACTAM 3,375 MG in SODIUM CHLORIDE 0.9% 100 ML IV SCH ×3 (03:36→16:58)
[2016-08-20] MEDS: SODIUM CHLORIDE 0.9% 1,000 ML IV SCH ×2 (03:37→16:58)
[2016-08-20 07:02] LABS: Basophils % 0.1 % (0.0-0.8); Eosinophils # 0.2 10*3/uL (0.0-0.87); Eosinophils % 3.1 % (0.00-10.9); Hematocrit 25.2 VOL% (42.0-52.0); Hemoglobin 8.3 GM/DL (14.0-18.0); Immature Granulocytes % 0.4 %; Immature Granulocytes Absolute 0.03 #; Lymphocytes # 1.1 10*3/uL (1.4-4.0); Lymphocytes % 15.1 % (21.2-54.2); Mean Corpuscular HGB Conc 32.9 GM/DL (32-36); Mean Corpuscular Hemoglobin 29 PG (27-34); Mean Corpuscular Volume 86.6 FL (87-102); Mean Platelet Volume 9.9 FL (9.6-12.0); Monocytes # 0.7 10*3/uL (0.11-0.8); Monocytes % 8.8 % (1.7-12.7); Neutrophils # 5.3 10*3/uL (1.4-7.4); Neutrophils % 72.5 % (38.7-73.9); Platelet Count 285 T/CUMM (130-400); Red Blood Count 2.91 MC/CUMM (3.8-5.5); Red Cell Distribution Width 12.8 % (9.3-17.3); White Blood Count 7.4 T/CUMM (4-12)
[2016-08-20 07:37] LABS: Calcium 8.2 MG/DL (8.5-10.1); Osmolality,Calculated 281.4 MOS/KG (273-304)
[2016-08-20] MEDS: PANTOPRAZOLE 40 MG TABLET PO SCH (09:20)
[2016-08-20] MEDS: COLCHICINE 0.6 MG TABLET PO SCH (09:20)
[2016-08-20] MEDS: amLODIPine 5 MG TABLET PO SCH (09:20)
[2016-08-20] MEDS: ALLOPURINOL 300 MG TABLET PO SCH (09:20)
[2016-08-20] MEDS: ENOXAPARIN 40 MG/0.4 ML SYRINGE SUBCUT SCH (09:26)
--- NOTE | 2016-08-20 10:29 | Infectious Disease Progress ---
Assessment and Plan (1) Cellulitis of foot, right Status: Acute Assessment and plan: Associated with a osteomyelitis of the first metatarsal head. MSSA infection is being treated. Current Visit: Yes (2) Fever Status: Acute Assessment and plan: Likely due to MSSA septicemia. He is deffervescing now since having his surgery. Current Visit: Yes (3) Osteomyelitis Status: Acute Assessment and plan: Likely due to the MSSA cultured from the blood. On antibiotics as below. Current Visit: Yes (4) CKD (chronic kidney disease) stage 2, GFR 60-89 ml/min Status: Chronic Assessment and plan: Worsening renal function possibly related to vancomycin therapy. Vancomycin stopped yesterday and renal function a bit better today. Continue to monitor. Current Visit: Yes (5) DM2 (diabetes mellitus, type 2) Status: Chronic Assessment and plan: Uncontrolled with A1c of 10.8%. Current Visit: Yes Qualifiers: Diabetes mellitus complication status: with kidney complications Diabetes mellitus middle or intermediate school principal insulin use: with middle or intermediate school principal use Chronic kidney disease stage: stage 2 (mild) (6) HTN (hypertension) Status: Chronic Current Visit: Yes Qualifiers: Hypertension type: essential hypertension Qualified Code(s): I10 - Essential (primary) hypertension (7) MSSA (methicillin susceptible Staphylococcus aureus) septicemia Status: Acute Assessment and plan: This is due to infected right foot he has osteomyelitis of the first metatarsal head and also surrounding cellulitis. Recommendations: 1. Continue Zosyn until we get back for wound cultures and ensure there is no other organisms such as a gram-negative or anaerobes 2. Echocardiogram today 3. Follow-up repeat blood cultures and also finalization of the initial blood cultures 4. Wound care Current Visit: Yes Infectious Disease - PN: Subj Interval history: Patient doing better today, no fever for 24 hours. He is tolerating antibiotics without nausea vomiting or diarrhea. Infectious Disease Exam (PN) - Constitutional Vitals: Temp Pulse Resp BP Pulse Ox 99.5 F 96 H 20 148/95 97 08/20/16 09:12 08/20/16 09:12 08/20/16 09:12 08/20/16 09:12 08/20/16 09:12 General appearance: no acute distress Exam: General appearance: no acute distress - Eye Eye exam: Present: EOMI. no icterus Pupils: Present: MAIN - ENT ENT exam: no oral exudates - Respiratory Respiratory exam: vesicular BS, no crepitations or wheezes - Cardiovascular Cardiovascular exam: regular rate and rhythm, no murmurs - GI/Abdominal GI/Abdominal exam: normal bowel sounds, soft, non-tender, no organomegaly or mass - Extremities Exam Extremities exam: Right foot bandaged - Skin Skin exam: no rash Results - Labs CBC & BMP: 08/20/16 06:33 08/20/16 06:33 Lab Results: I have reviewed the past 24 hour labs
--- NOTE | 2016-08-20 11:46 | Event Note ---
POD #1 s/p right 1st MT head resection for osteomyelitis. Pt reports pain is much improved. Minimal activity. No chest pain, SOB, wheeze, cough, abd pain, N/ V/D. AP Tmax 100.1F; Otherwise VSS Right foot: dressings removed. Soft tissue within wound appears pink and viable ; MT exposed and no evidence of necrosis. No malodor or drainage noted. DP palpable. Great toe warm with BCR. Blood cx: MSSA Wound culture: Gram + cocci x 2 A/p Stable POD #1. Encouraged increased activity and sitting up in chair. WB thru right heel - pt likely benefit from wedge shoe. C/s PT Repacked wound today - wound care orders placed for daily dressing changes with MD/PA at bedside initially. Continue IV abx - appreciate ID recs.
--- NOTE | 2016-08-20 11:58 | Hospitalist Progress Note ---
Assessment and Plan (1) Osteomyelitis Status: Acute Assessment and plan: Defer to ID and Surgery. Current Visit: Yes (2) CKD (chronic kidney disease) stage 2, GFR 60-89 ml/min Status: Chronic Assessment and plan: We will continue to follow. Current Visit: Yes (3) DM2 (diabetes mellitus, type 2) Status: Chronic Assessment and plan: Continue current management. Current Visit: Yes Qualifiers: Diabetes mellitus complication status: with kidney complications Diabetes mellitus longterm insulin use: with longterm use Chronic kidney disease stage: stage 2 (mild) (4) Gout Status: Chronic Assessment and plan: Does not appear to be gout however continuing gout medications. Current Visit: Yes Qualifiers: Gout site: foot Laterality: right Chronicity: chronic Hospitalist: Subjective Interval history: Continues to have low grade fevers. Exam - Constitutional Vitals: Period Temp Pulse Resp BP Sys/Poon Pulse Ox Last 24 Hr 98.9 F-100.3 F 82-100 14-20 107-157/68-96 93-100 General appearance: no acute distress - Head Head exam: Present: normocephalic, atraumatic - Eye Eye exam: Present: EOMI Pupils: Present: MAIN - ENT ENT exam: Present: normal exam - Neck Neck exam: Present: normal inspection - Respiratory Respiratory exam: Present: clear to auscultation bilaterally. Absent: rhonchi, wheezes - Cardiovascular Cardiovascular exam: Present: regular rate and rhythm. Absent: gallop, rubs, systolic murmur - GI/Abdominal GI/Abdominal exam: Present: normal bowel sounds, soft. Absent: distended, firm , guarding, tenderness, rebound - Extremities Exam Extremities exam: Present: normal inspection, other (right foot in surgical dressing). Absent: calf tenderness, edema Results - Labs CBC & BMP: 08/20/16 06:33 08/20/16 06:33 Lab Results: I have reviewed the past 24 hour labs
[2016-08-20] MEDS: INSULIN LISPRO 100 UNIT/ML SUBCUT SCH ×4 (12:05→20:22)
--- NOTE | 2016-08-20 18:08 | ECHO Report ---
Perez Lopez Exam Date: 08/20/2016 10:09 Referring Physician: Technologist: Michell Diehl Age: 51 Ht (in): 76 Wt (lb): 248 Gender: M Exam Location: [facility] Echo Indications: MSSA, Osteomyelitis, fever, CKD, diabetes, HTN, gout, joint pain BP: 151 / 96 HR: 95 Rhythm: Sinus Technical Quality: Fair IMPRESSIONS Severely increased septal wall thickness. Moderate concentric left ventricular hypertrophy with diastolic dysfunction. Left ventricular ejection fraction is estimated at 55-60 %. Normal right ventricular size. Normal right atrial size. The left atrium is mildly enlarged. Mildly thickened mitral valve with mild mitral regurgitation. Aortic valve sclerosis without stenosis or regurgitation. Morphologically normal tricuspid valve. Mild tricuspid valve regurgitation. Tricuspid regurgitation velocities suggest a PAP of 11.2 mmHg + RAP. Morphologically normal pulmonic valve. Trace pulmonary valve regurgitation. No pericardial effusion. Normal size aortic root and proximal ascending aorta. MEASUREMENTS (Male / Female) Normal Values 2D ECHO LV Diastolic Diameter PLAX 3.8 cm 4.2 - 5.9 / 3.9 - 5.3 cm LV Systolic Diameter PLAX 2.5 cm LV Fractional Shortening PLAX 33.6 % IVS Diastolic Thickness 4.0 cm 0.6 - 1.0 / 0.6 - 0.9 cm LVPW Diastolic Thickness 1.7 cm 0.6 - 1.0 / 0.6 - 0.9 cm RV Internal Dim ED PLAX 3.0 cm Aortic Root Diameter 2.9 cm LA Systolic Diameter LX 3.6 cm 3.0 - 4.0 / 2.7 - 3.8 cm DOPPLER TR Peak Velocity 167.0 cm/s TR Peak Gradient 11.2 mmHg FINDINGS Left Ventricle Severely increased septal wall thickness. Moderate concentric left ventricular hypertrophy with diastolic dysfunction. Left ventricular ejection fraction is estimated at 55-60 %. Right Ventricle Normal right ventricular size. Right Atrium Normal right atrial size. Left Atrium The left atrium is mildly enlarged. Mitral Valve Mildly thickened mitral valve with mild mitral regurgitation. Aortic Valve Aortic valve sclerosis without stenosis or regurgitation. Tricuspid Valve Morphologically normal tricuspid valve. Mild tricuspid valve regurgitation. Tricuspid regurgitation velocities suggest a PAP of 11.2 mmHg + RAP. Pulmonic Valve Morphologically normal pulmonic valve. Trace pulmonary valve regurgitation. Pericardium No pericardial effusion. Aorta Normal size aortic root and proximal ascending aorta. Sulaiman Hurtado MD (Electronically Signed) Final Date: 20 Aug 2016 18:07
[2016-08-20] MEDS: INSULIN GLARGINE 100 UNIT/ML SUBCUT SCH (20:22)
[2016-08-21] MEDS: PIPERACILLIN/TAZOBACTAM 3,375 MG in SODIUM CHLORIDE 0.9% 100 ML IV SCH ×2 (01:48→08:27)
[2016-08-21] MEDS: hydrALAZINE 20 MG/1 ML VIAL IV PRN (06:48)
[2016-08-21] MEDS: INSULIN LISPRO 100 UNIT/ML SUBCUT SCH ×4 (08:26→20:32)
[2016-08-21] MEDS: SODIUM CHLORIDE 0.9% 1,000 ML IV SCH ×3 (08:26→20:05)
[2016-08-21] MEDS: amLODIPine 5 MG TABLET PO SCH (08:27)
[2016-08-21] MEDS: PANTOPRAZOLE 40 MG TABLET PO SCH (08:27)
[2016-08-21] MEDS: ALLOPURINOL 300 MG TABLET PO SCH (08:27)
[2016-08-21] MEDS: ENOXAPARIN 40 MG/0.4 ML SYRINGE SUBCUT SCH (08:27)
[2016-08-21] MEDS: COLCHICINE 0.6 MG TABLET PO SCH (08:27)
--- NOTE | 2016-08-21 09:02 | Event Note ---
Patient seen and examined. Afebrile vital signs stable. Wound is clean with no purulence. Patient feels much better. There is no erythema or cellulitis. Wound was repacked. Wound care instructions were given. Patient can be discharged from a surgical standpoint when ready medically. Can follow-up with me after discharge in a couple of weeks.
--- NOTE | 2016-08-21 09:48 | Infectious Disease Progress ---
Assessment and Plan (1) Cellulitis of foot, right Status: Acute Assessment and plan: Associated with a osteomyelitis of the first metatarsal head; surgical wound looks clean with no active infection currently. MSSA infection is being treated. Current Visit: Yes (2) Fever Status: Acute Assessment and plan: Likely due to MSSA septicemia. He has defervesced now since having his surgery. Current Visit: Yes (3) Osteomyelitis Status: Acute Assessment and plan: Likely due to the MSSA cultured from the blood; it seems an anaerobe is growing from tissue cultures. Instead of cefazolin will give Unasyn. Follow-up final wound culture results. Current Visit: Yes (4) CKD (chronic kidney disease) stage 2, GFR 60-89 ml/min Status: Chronic Assessment and plan: Worsening renal function possibly related to vancomycin therapy. Vancomycin stopped and renal function better. Continue to monitor. Current Visit: Yes (5) DM2 (diabetes mellitus, type 2) Status: Chronic Assessment and plan: Uncontrolled with A1c of 10.8%. Current Visit: Yes Qualifiers: Diabetes mellitus complication status: with kidney complications Diabetes mellitus termite technician insulin use: with termite technician use Chronic kidney disease stage: stage 2 (mild) (6) HTN (hypertension) Status: Chronic Current Visit: Yes Qualifiers: Hypertension type: essential hypertension Qualified Code(s): I10 - Essential (primary) hypertension (7) MSSA (methicillin susceptible Staphylococcus aureus) septicemia Status: Acute Assessment and plan: This is due to infected right foot he has osteomyelitis of the first metatarsal head and also surrounding cellulitis. TTE is negative for endocarditis. Recommendations: 1. Switch to cefazolin 2. Follow-up repeat blood cultures 3. No PICC line placement until we get to repeat blood cultures negative ADDENDUM Since an anaerobe is growing from wound tissue culture, will switch to Unasyn rather than cefazolin. Current Visit: Yes Infectious Disease - PN: Subj Interval history: Patient doing well, no complaints, no recurrence of fever. No nausea vomiting or diarrhea. No cough or shortness of breath. Infectious Disease Exam (PN) - Constitutional Vitals: Temp Pulse Resp BP Pulse Ox 98.4 F 84 20 171/94 99 08/21/16 08:00 08/21/16 08:00 08/21/16 08:00 08/21/16 08:00 08/21/16 08:00 General appearance: no acute distress Exam: General appearance: no acute distress - Eye Eye exam: Present: EOMI. no icterus Pupils: Present: MAIN - ENT ENT exam: no oral exudates - Respiratory Respiratory exam: vesicular BS, no crepitations or wheezes - Cardiovascular Cardiovascular exam: regular rate and rhythm, no murmurs - GI/Abdominal GI/Abdominal exam: normal bowel sounds, soft, non-tender, no organomegaly or mass - Extremities Exam Extremities exam: Right foot wound examined, it is to the medial aspect of the first metatarsal head and is clean and healthy pink quite deep however, no drainage - Skin Skin exam: no rash Results - Labs CBC & BMP: 08/20/16 06:33 08/20/16 06:33 Lab Results: I have reviewed the past 24 hour labs (MSSA from blood cultures, gram-positive cocci from foot were not identified, repeat blood cultures negative at day 1)
[2016-08-21] MEDS ORDERED: ceFAZolin 2,000 MG in PREMIX 1 EACH IV SCH (11:00)
--- NOTE | 2016-08-21 12:05 | Hospitalist Progress Note ---
Assessment and Plan - Time spent with patient Time spent with patient: Greater than 30 minutes (1) Osteomyelitis Status: Acute Assessment and plan: Defer to ID and Surgery. Current Visit: Yes (2) CKD (chronic kidney disease) stage 2, GFR 60-89 ml/min Status: Chronic Assessment and plan: We will continue to follow. Current Visit: Yes (3) DM2 (diabetes mellitus, type 2) Status: Chronic Assessment and plan: Continue current management. 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 Current Visit: Yes Qualifiers: Gout site: foot Laterality: right Chronicity: chronic Hospitalist: Subjective Interval history: Complains of lip pain, otherwise no overnight events. Patient has defervesced. Exam - Constitutional Vitals: Period Temp Pulse Resp BP Sys/Poon Pulse Ox Last 24 Hr 98.2 F-99.5 F 68-85 18-20 151-171/71-106 96-99 General appearance: no acute distress - Head Head exam: Present: normocephalic, atraumatic - Eye Eye exam: Present: EOMI Pupils: Present: MAIN - ENT ENT exam: Present: normal exam - Neck Neck exam: Present: normal inspection - Respiratory Respiratory exam: Present: clear to auscultation bilaterally. Absent: rhonchi, wheezes - Cardiovascular Cardiovascular exam: Present: regular rate and rhythm. Absent: gallop, rubs, systolic murmur - GI/Abdominal GI/Abdominal exam: Present: normal bowel sounds, soft. Absent: distended, firm , guarding, tenderness, rebound - Extremities Exam Extremities exam: Present: normal inspection. Absent: calf tenderness, edema Results - Labs CBC & BMP: 08/20/16 06:33 08/20/16 06:33 Lab Results: I have reviewed the past 24 hour labs
[2016-08-21] MEDS: AMPICILLIN/SULBACTAM 3,000 MG in SODIUM CHLORIDE 0.9% 100 ML IV SCH ×2 (17:30→21:51)
[2016-08-21] MEDS: INSULIN GLARGINE 100 UNIT/ML SUBCUT SCH (20:32)
[2016-08-22] MEDS: AMPICILLIN/SULBACTAM 3,000 MG in SODIUM CHLORIDE 0.9% 100 ML IV SCH ×2 (02:14→08:25)
[2016-08-22] MEDS: hydrALAZINE 20 MG/1 ML VIAL IV PRN (04:38)
[2016-08-22] MEDS: INSULIN LISPRO 100 UNIT/ML SUBCUT SCH ×2 (08:21→13:23)
[2016-08-22] MEDS: PANTOPRAZOLE 40 MG TABLET PO SCH (08:21)
[2016-08-22] MEDS: ALLOPURINOL 300 MG TABLET PO SCH (08:21)
[2016-08-22] MEDS: amLODIPine 5 MG TABLET PO SCH (08:21)
[2016-08-22] MEDS: COLCHICINE 0.6 MG TABLET PO SCH (08:21)
[2016-08-22] MEDS: ENOXAPARIN 40 MG/0.4 ML SYRINGE SUBCUT SCH (08:21)
[2016-08-22] MEDS: SODIUM CHLORIDE 0.9% 1,000 ML IV SCH (08:29)
--- NOTE | 2016-08-22 10:06 | Event Note ---
General Surgery Progress Note Chief complaint This patient is a 51-year-old man admitted with osteomyelitis of the right first metatarsal head and necrotizing infection that was treated by Dr. Henson with excisional debridement and resection of metatarsal head on 08/19/2016. Interval history The patient did have positive blood cultures which came back as MSSA. He is on antibiotics and infectious disease is following. He has no fevers. He appears to be doing well today with no significant pain. Physical exam Afebrile with normal vital signs The right foot wound was taken down. There is a small amount of soupy tissue at the base of the wound but I think this can be improved by packing it more deeply and aggressively. There is no purulent drainage or erythema or foul odor. There is no necrotic tissue. Labs Reviewed Imaging Reviewed Assessment and plan Continue antibiotics per infectious disease and medical service. Continue wound care with wet-to-dry dressings twice a day I will follow the patient while he is here but after he is discharged home he will follow-up with Dr. Henson in clinic
--- NOTE | 2016-08-22 12:11 | Infectious Disease Progress ---
Assessment and Plan (1) Cellulitis of foot, right Status: Acute Assessment and plan: Associated with acute osteomyelitis of the first metatarsal head, status post surgical debridement with wound looking clean. Current Visit: Yes (2) Fever Status: Acute Assessment and plan: Likely due to MSSA septicemia. He has defervesced now since having his surgery. Current Visit: Yes (3) Osteomyelitis Status: Acute Assessment and plan: MSSA and Streptococcus agalactiae isolated from tissue culture, no anaerobes. Current Visit: Yes (4) CKD (chronic kidney disease) stage 2, GFR 60-89 ml/min Status: Chronic Current Visit: Yes (5) DM2 (diabetes mellitus, type 2) Status: Chronic Assessment and plan: Uncontrolled with A1c of 10.8%. Current Visit: Yes Qualifiers: Diabetes mellitus complication status: with kidney complications Diabetes mellitus halfway insulin use: with local company intermodal truck driver use Chronic kidney disease stage: stage 2 (mild) (6) HTN (hypertension) Status: Chronic Current Visit: Yes Qualifiers: Hypertension type: essential hypertension Qualified Code(s): I10 - Essential (primary) hypertension (7) MSSA (methicillin susceptible Staphylococcus aureus) septicemia Status: Acute Assessment and plan: This is due to infected right foot he has osteomyelitis of the first metatarsal head and also surrounding cellulitis. TTE is negative for endocarditis. Recommendations: 1. Stop Unasyn 2. For convenient daily dosing on discharge he will get ceftriaxone 2 g IV daily first dose now before he goes him today 3. No PICC line placement yet as his repeat blood cultures have not yet come back confirming negative. I can order PICC line when the patient sees me in the office next week. 4. Patient will get IV antibiotic with last dose on September 15; afterwards we will probably put him on 2 weeks of oral antibiotic therapy to complete 6 weeks for his osteomyelitis. 5. Appointment to see me in the office on August 28 Current Visit: Yes Infectious Disease - PN: Subj Interval history: Patient doing well, no nausea vomiting or diarrhea on and buttock. His foot feels good. He has had no fever. Infectious Disease Exam (PN) - Constitutional Vitals: Temp Pulse Resp BP Pulse Ox 98.6 F 86 18 154/98 98 08/22/16 08:00 08/22/16 08:20 08/22/16 08:20 08/22/16 08:20 08/22/16 04:00 General appearance: no acute distress Exam: General appearance: no acute distress, sitting on side of bed - Eye Eye exam: Present: EOMI. no icterus Pupils: Present: MAIN - ENT ENT exam: no oral exudates - Respiratory Respiratory exam: vesicular BS, no crepitations or wheezes - Cardiovascular Cardiovascular exam: regular rate and rhythm, no murmurs - GI/Abdominal GI/Abdominal exam: normal bowel sounds, soft, non-tender, no organomegaly or mass - Extremities Exam Extremities exam: Right foot bandaged - Skin Skin exam: no rash Results - Labs CBC & BMP: 08/20/16 06:33 08/20/16 06:33 Lab Results: I have reviewed the past 24 hour labs (Repeat blood cultures from the 16th negative to date; no anaerobes isolated from the foot, strep and MSSA isolated) Specialty Discharge - Follow Up or Referrals Follow up with: Keron Henson MD [Physician] - 09/03/16 10:45 am
[2016-08-22 12:26] VITALS: BP 147/92
[2016-08-22] MEDS ORDERED: cefTRIAXone 2,000 MG in SODIUM CHLORIDE 0.9% 100 ML IV SCH (12:30)
--- NOTE | 2016-08-22 13:48 | Discharge Summary ---
Hospital Course - Hospital Course Hospital Course: \Mr Lopez presented with right foot swelling and sepsis. He was initiated on broad spectrum antibiotics, and MRI of his foot revealed osteomyelitis and an abscess on the first metatarsal. He was taken to surgery and had debridement. Infectious disease was consulted and they adjusted his antibiotics once blood cultures and tissue cultures returned. These revealed MSSA. Repeat blood culture negative. He will be discharged with IV Ceftriaxone to be managed by ID. By discharge he met maximum benefit of hospitalization. I spent 39 mins coordinating this discharge. - Time spent with patient Time with patient DS: Greater than 30 minutes Diagnosis - Discharge Diagnosis (1) Osteomyelitis Status: Acute (2) CKD (chronic kidney disease) stage 2, GFR 60-89 ml/min Status: Chronic (3) DM2 (diabetes mellitus, type 2) Status: Chronic (4) Gout Status: Chronic Specialty Discharge - Follow Up or Referrals Follow up with: Holley Beltrán MD [Physician] - 08/28/16 Keron Henson MD [Physician] - 09/03/16 10:45 am Discharge Plan - Discharge Data Disposition: Disch To Home/Self Care Condition at Discharge: Stable Discharge Diet: advance to your usual diet Activity: resume usual activities as tolerated - Discharge Medications New cefTRIAXone [Rocephin] 2,000 mg IV Q24H vial Continue Allopurinol 300 mg PO DAILY metFORMIN [Glucophage] 1,000 mg PO DAILY W/BREAKFAST Lisinopril/Hctz 20-12.5 [Prinzide 20-12.5] 1 tablet PO DAILY Amlodipine Besylate 5 mg PO DAILY Insulin Glargine [Lantus] 10 unit SUBCUT BEDTIME Colchicine 0.6 mg PO DAILY #30 capsule Ibuprofen Tab [Motrin Tab] 800 mg PO Q6H #40 tablet HYDROcodone/ACETAMIN 10-325 [[place] 10-325] 1 tablet PO Q6H #20 tablet - Follow Up or Referral Follow Up: Holley Beltrán MD [Physician] - 08/28/16 Keron Henson MD [Physician] - 09/03/16 10:45 am - Forms/Instructions Exam - Constitutional Vitals: Period Temp Pulse Resp BP Sys/Poon Pulse Ox Last 24 Hr 97.5 F-98.6 F 76-88 18-20 147-191/92-100 98-98 General appearance: normal weight, no acute distress - Head Head exam: Present: normal inspection, normocephalic, atraumatic - Eye Eye exam: Present: EOMI Pupils: Present: MAIN - ENT ENT exam: Present: normal exam - Neck Neck exam: Present: normal inspection. Absent: lymphadenopathy, meningismus - Respiratory Respiratory exam: Present: clear to auscultation bilaterally. Absent: accessory muscle use, prolonged expiratory phase, wheezes - Cardiovascular Cardiovascular exam: Present: regular rate and rhythm. Absent: bradycardia, irregular rhythm, systolic murmur - GI/Abdominal GI/Abdominal exam: Present: normal bowel sounds. Absent: ascites, hypoactive bowel sounds, tenderness - Extremities Exam Extremities exam: Present: other (right foot with surgical dressing) Discharge Results Procedures and tests throughout hospitalization: Pending Orders 08/19/16 16:27 Blood Culture Stat Labs on day of discharge: Labs from last 24 hours 08/22/16 08/22/16 08/21/16 10:19 07:12 20:26 POC Glucose 211 H 142 H 147 H 08/21/16 16:56 POC Glucose 202 H Preliminary micro results at discharge 08/19/16 16:27 Blood Culture - Preliminary Blood No growth at 1 day 08/19/16 16:27 Blood Culture - Preliminary Blood No growth at 1 day DS: Provider Date of admission: 08/18/16 01:38 Primary care physician: . Yvonne PCP Attending physician on admission: Leilani Rosen MD Consults: 08/18/16 01:41 Consult to Pharmacy [CONS] Routine Reason for Pharmacy Consult: Dose/Manage Vancomycin 08/19/16 11:33 Consult to Physician [CONS] Routine Comment: osteomyelitis Consulting Provider: Holley Beltrán Person Notified: ELSA Date Notified: 08/19/16 08/20/16 11:47 Consult to Physical Therapy [CONS] Routine Reason for Physical Therapy: Gait Training Consult Comment: WB thru Right heel and/or with wedge shoe; 08/22/16 12:06 Consult to Case Mgmt/Social Srvs [CONS] Routine Reason for Case Mgmt/Social Srvs: Infusion Center Consult Comment: ceftriaxone 2g daily, last dose on 09/15/16 Discharging clinician: Sandra Mccray MD Expected date of discharge: 08/22/16
== END 2016-08-22 15:48 | disposition home or self-care (01) | DRG 854 ==
LOC: N.ED 21:11 → SUATTDRO 08-18 01:38 → N.EDINP 08-18 01:38 → N.2E 08-18 02:11
PROVIDERS: ADMIT Family Medicine; ATTEND Internal Medicine

== ENCOUNTER 2020-10-27 14:23 | Inpatient (IN) ==
[2020-10-27] MEDS ORDERED: AZITHROMYCIN INJ 500 MG in SODIUM CHLORIDE 0.9% 250 ML IV STA (17:11)
[2020-10-27] MEDS ORDERED: cefTRIAXone 1,000 MG in SODIUM CHLORIDE 0.9% 100 ML IV STA (17:11)
[2020-10-27] MEDS ORDERED: LACTATED RINGERS 1,000 ML IV ONE (17:20)
[2020-10-27 17:25] LABS: Basophils % 0.2 % (0.0-0.8); Eosinophils % 0.2 % (0.00-10.9); Hematocrit 36.3 VOL% (42.0-52.0); Hemoglobin 12.3 GM/DL (14.0-18.0); Immature Granulocytes % 0.4 %; Immature Granulocytes Absolute 0.02 #; Lymphocytes # 1.3 10*3/uL (1.4-4.0); Mean Corpuscular HGB Conc 33.9 GM/DL (32-36); Mean Corpuscular Volume 90.1 FL (87-102); Mean Platelet Volume 9.9 FL (9.6-12.0); Neutrophils % 70.2 % (38.7-73.9); Platelet Count 228 T/CUMM (130-400); Red Blood Count 4.03 MC/CUMM (3.8-5.5); Red Cell Distribution Width 12.6 % (9.3-17.3); White Blood Count 5.6 T/CUMM (4-12)
[2020-10-27 17:45] LABS: Albumin 3.6 G/DL (3.4-5.0); Bilirubin,Total 0.6 MG/DL (0.20-1.00); Calcium 8.6 MG/DL (8.5-10.1); Potassium 4.4 MMOL/L (3.5-5.1); Total Protein 8.3 G/DL (6.4-8.2)
[2020-10-27] MEDS ORDERED: DEXTROSE 50% 25 GM/50 ML VIAL IV PRN (18:51)
[2020-10-27] MEDS ORDERED: GLUCAGON 1 MG VIAL IM PRN (18:51)
[2020-10-27] MEDS ORDERED: DOCUSATE SODIUM 100 MG CAPSULE PO PRN (18:51)
[2020-10-27] MEDS ORDERED: CALCIUM CARBONATE CHEW 500 MG TABLET PO PRN (18:51)
[2020-10-27] MEDS ORDERED: diphenhydrAMINE CAP 25 MG CAPSULE PO PRN (18:51)
[2020-10-27] MEDS ORDERED: ONDANSETRON 4 MG/2 ML VIAL IV PRN (18:51)
[2020-10-27] MEDS: ALBUTEROL/IPRATROPIUM 3 ML NEB RESP TX SCH (19:00)
[2020-10-27] MEDS: LACTATED RINGERS 1,000 ML IV SCH (22:30)
[2020-10-27] MEDS: ACETAMINOPHEN 325 MG TABLET PO PRN (22:35)
[2020-10-27] MEDS: guaiFENesin/DM ER 600-30 MG TABLET PO PRN (22:35)
[2020-10-27] MEDS: NAPROXEN 500 MG TABLET PO SCH (22:35)
[2020-10-27] MEDS: ENOXAPARIN 30 MG/0.3 ML SYRINGE SUBCUT SCH (22:35)
[2020-10-27] MEDS: DEXAMETHASONE 4 MG TABLET PO SCH (22:45)
[2020-10-27] MEDS: INSULIN REGULAR 100 UNIT/ML SUBCUT SCH (23:16)
[2020-10-28] MEDS: ALBUTEROL/IPRATROPIUM 3 ML NEB RESP TX SCH ×5 (00:52→20:38)
[2020-10-28 06:11] LABS: Basophils % 0.2 % (0.0-0.8); Hematocrit 35.4 VOL% (42.0-52.0); Hemoglobin 11.8 GM/DL (14.0-18.0); Immature Granulocytes % 0.6 %; Immature Granulocytes Absolute 0.04 #; Lymphocytes # 0.5 10*3/uL (1.4-4.0); Lymphocytes % 8.2 % (21.2-54.2); Mean Corpuscular HGB Conc 33.3 GM/DL (32-36); Mean Corpuscular Volume 91.7 FL (87-102); Mean Platelet Volume 10.2 FL (9.6-12.0); Monocytes % 4.5 % (1.7-12.7); Neutrophils % 86.5 % (38.7-73.9); Platelet Count 225 T/CUMM (130-400); Red Blood Count 3.86 MC/CUMM (3.8-5.5); Red Cell Distribution Width 12.6 % (9.3-17.3); White Blood Count 6.2 T/CUMM (4-12)
[2020-10-28 06:35] LABS: Osmolality,Calculated 288.1 MOS/KG (273-304); Potassium 4.3 MMOL/L (3.5-5.1)
[2020-10-28] MEDS ORDERED: REMDESIVIR 200 MG in SODIUM CHLORIDE 0.9% 210 ML IV ONE (09:00)
[2020-10-28] MEDS: cefTRIAXone 1,000 MG in SODIUM CHLORIDE 0.9% 100 ML IV SCH (09:47)
[2020-10-28] MEDS: NAPROXEN 500 MG TABLET PO SCH ×2 (09:48→20:46)
[2020-10-28] MEDS: DEXAMETHASONE 4 MG TABLET PO SCH (09:48)
[2020-10-28] MEDS: INSULIN REGULAR 100 UNIT/ML SUBCUT SCH ×4 (09:48→20:46)
[2020-10-28] MEDS: LACTATED RINGERS 1,000 ML IV SCH (20:13)
[2020-10-28] MEDS: AZITHROMYCIN INJ 500 MG in SODIUM CHLORIDE 0.9% 250 ML IV SCH (20:43)
[2020-10-28] MEDS: ENOXAPARIN 30 MG/0.3 ML SYRINGE SUBCUT SCH (20:45)
[2020-10-29] MEDS: ALBUTEROL/IPRATROPIUM 3 ML NEB RESP TX SCH ×4 (00:16→19:41)
[2020-10-29 04:05] LABS: Basophils % 0.1 % (0.0-0.8); Eosinophils % 0.2 % (0.00-10.9); Hematocrit 36.8 VOL% (42.0-52.0); Hemoglobin 12.3 GM/DL (14.0-18.0); Immature Granulocytes % 0.6 %; Immature Granulocytes Absolute 0.06 #; Lymphocytes # 0.7 10*3/uL (1.4-4.0); Lymphocytes % 7.4 % (21.2-54.2); Mean Corpuscular HGB Conc 33.4 GM/DL (32-36); Mean Corpuscular Volume 90.9 FL (87-102); Mean Platelet Volume 10.3 FL (9.6-12.0); Monocytes % 4.1 % (1.7-12.7); Neutrophils % 87.6 % (38.7-73.9); Platelet Count 274 T/CUMM (130-400); Red Blood Count 4.05 MC/CUMM (3.8-5.5); Red Cell Distribution Width 12.4 % (9.3-17.3); White Blood Count 9.4 T/CUMM (4-12)
[2020-10-29] MEDS: LACTATED RINGERS 1,000 ML IV SCH ×4 (04:17→20:06)
[2020-10-29 04:33] LABS: Calcium 9.1 MG/DL (8.5-10.1); Osmolality,Calculated 294.8 MOS/KG (273-304); Potassium 4.2 MMOL/L (3.5-5.1)
[2020-10-29 04:46] LABS: Band Neutrophils 2 % (0-10); Lymphocytes 10 % (20-55); Segmented Neutrophils 83 % (50-85); Total Cells Counted 100
[2020-10-29 04:47] LABS: Microcytosis Slight; Platelet Estimate Normal
[2020-10-29] MEDS: cefTRIAXone 1,000 MG in SODIUM CHLORIDE 0.9% 100 ML IV SCH (09:08)
[2020-10-29] MEDS: ZINC GLUCONATE 50 MG TABLET PO SCH (09:09)
[2020-10-29] MEDS: NAPROXEN 500 MG TABLET PO SCH ×2 (09:09→21:03)
[2020-10-29] MEDS: ASCORBIC ACID 500 MG TABLET PO SCH ×2 (09:09→21:03)
[2020-10-29] MEDS: DEXAMETHASONE 4 MG TABLET PO SCH (09:09)
[2020-10-29] MEDS: CHOLECALCIFEROL 1,000 UNIT TABLET PO SCH (09:09)
[2020-10-29] MEDS: INSULIN REGULAR 100 UNIT/ML SUBCUT SCH ×4 (09:10→21:03)
[2020-10-29] MEDS: REMDESIVIR 100 MG in SODIUM CHLORIDE 0.9% 100 ML IV SCH (11:27)
[2020-10-29] MEDS ORDERED: SODIUM CHLORIDE 0.9% 1,000 ML IV PRN (13:34)
[2020-10-29] MEDS: ENOXAPARIN 30 MG/0.3 ML SYRINGE SUBCUT SCH (21:03)
[2020-10-29] MEDS: AZITHROMYCIN INJ 500 MG in SODIUM CHLORIDE 0.9% 250 ML IV SCH (21:03)
[2020-10-30 06:00] LABS: Calcium 8.6 MG/DL (8.5-10.1); Osmolality,Calculated 297.4 MOS/KG (273-304); Potassium 4.4 MMOL/L (3.5-5.1)
[2020-10-30] MEDS: amLODIPine 10 MG TABLET PO SCH (06:08)
[2020-10-30] MEDS: LACTATED RINGERS 1,000 ML IV SCH ×2 (06:13→16:35)
[2020-10-30 07:31] LABS: Basophils % 0.1 % (0.0-0.8); Eosinophils # 0.2 10*3/uL (0.0-0.87); Hematocrit 35.5 VOL% (42.0-52.0); Hemoglobin 11.7 GM/DL (14.0-18.0); Immature Granulocytes % 1.1 %; Immature Granulocytes Absolute 0.18 #; Lymphocytes # 0.9 10*3/uL (1.4-4.0); Lymphocytes % 5.5 % (21.2-54.2); Mean Corpuscular Volume 92.7 FL (87-102); Mean Platelet Volume 10.7 FL (9.6-12.0); Monocytes % 3.4 % (1.7-12.7); Neutrophils % 88.9 % (38.7-73.9); Platelet Count 338 T/CUMM (130-400); Red Blood Count 3.83 MC/CUMM (3.8-5.5); Red Cell Distribution Width 12.8 % (9.3-17.3); White Blood Count 16.3 T/CUMM (4-12)
[2020-10-30] MEDS: ALBUTEROL/IPRATROPIUM 3 ML NEB RESP TX SCH ×4 (07:51→19:40)
[2020-10-30 08:15] LABS: Anisocytosis Slight; Band Neutrophils 5 % (0-10); Burr Cells Few; Eosinophils 2 % (0-10); Lymphocytes 4 % (20-55); Metamyelocytes 1 %; Platelet Estimate Normal; Segmented Neutrophils 81 % (50-85); Total Cells Counted 100
[2020-10-30 08:19] LABS: Macrocytosis Slight
[2020-10-30] MEDS: INSULIN REGULAR 100 UNIT/ML SUBCUT SCH ×4 (09:53→20:37)
[2020-10-30] MEDS: cefTRIAXone 1,000 MG in SODIUM CHLORIDE 0.9% 100 ML IV SCH (09:54)
[2020-10-30] MEDS: REMDESIVIR 100 MG in SODIUM CHLORIDE 0.9% 100 ML IV SCH (09:57)
[2020-10-30] MEDS: hydrALAZINE 20 MG/1 ML VIAL IV PRN ×2 (09:58→17:59)
[2020-10-30] MEDS: NAPROXEN 500 MG TABLET PO SCH ×2 (09:59→20:37)
[2020-10-30] MEDS: FAMOTIDINE 20 MG TABLET PO SCH (09:59)
[2020-10-30] MEDS: DEXAMETHASONE 4 MG TABLET PO SCH (09:59)
[2020-10-30] MEDS: CHOLECALCIFEROL 1,000 UNIT TABLET PO SCH (09:59)
[2020-10-30] MEDS: ZINC GLUCONATE 50 MG TABLET PO SCH (09:59)
[2020-10-30] MEDS: ASCORBIC ACID 500 MG TABLET PO SCH ×2 (09:59→20:39)
[2020-10-30] MEDS: hydrALAZINE 25 MG TABLET PO SCH ×2 (17:37→20:37)
[2020-10-30] MEDS: AZITHROMYCIN INJ 500 MG in SODIUM CHLORIDE 0.9% 250 ML IV SCH (20:37)
[2020-10-30] MEDS: ENOXAPARIN 30 MG/0.3 ML SYRINGE SUBCUT SCH (20:37)
[2020-10-31 04:59] LABS: Basophils % 0.2 % (0.0-0.8); Eosinophils # 0.2 10*3/uL (0.0-0.87); Eosinophils % 1.4 % (0.00-10.9); Hematocrit 34.7 VOL% (42.0-52.0); Hemoglobin 11.8 GM/DL (14.0-18.0); Immature Granulocytes Absolute 0.34 #; Lymphocytes # 0.9 10*3/uL (1.4-4.0); Lymphocytes % 5.5 % (21.2-54.2); Mean Corpuscular Volume 90.6 FL (87-102); Mean Platelet Volume 10.4 FL (9.6-12.0); Neutrophils % 87.9 % (38.7-73.9); Platelet Count 352 T/CUMM (130-400); Red Blood Count 3.83 MC/CUMM (3.8-5.5); White Blood Count 16.7 T/CUMM (4-12)
[2020-10-31 05:23] LABS: Calcium 8.7 MG/DL (8.5-10.1); Osmolality,Calculated 295.4 MOS/KG (273-304); Potassium 4.2 MMOL/L (3.5-5.1)
[2020-10-31 05:51] LABS: Band Neutrophils 1 % (0-10); Lymphocytes 5 % (20-55); Platelet Estimate Normal; Segmented Neutrophils 90 % (50-85); Total Cells Counted 100
[2020-10-31] MEDS: ALBUTEROL/IPRATROPIUM 3 ML NEB RESP TX SCH ×4 (07:45→19:40)
[2020-10-31] MEDS: ZINC GLUCONATE 50 MG TABLET PO SCH (11:19)
[2020-10-31] MEDS: guaiFENesin/DM ER 600-30 MG TABLET PO PRN (11:19)
[2020-10-31] MEDS: ACETAMINOPHEN 325 MG TABLET PO PRN (11:20)
[2020-10-31] MEDS: DEXAMETHASONE 4 MG TABLET PO SCH (11:20)
[2020-10-31] MEDS: hydrALAZINE 25 MG TABLET PO SCH ×3 (11:20→21:28)
[2020-10-31] MEDS: amLODIPine 10 MG TABLET PO SCH (11:21)
[2020-10-31] MEDS: ASCORBIC ACID 500 MG TABLET PO SCH ×2 (11:21→21:39)
[2020-10-31] MEDS: cefTRIAXone 1,000 MG in SODIUM CHLORIDE 0.9% 100 ML IV SCH (11:21)
[2020-10-31] MEDS: lisinopriL 20 MG TABLET PO SCH (11:21)
[2020-10-31] MEDS: CHOLECALCIFEROL 1,000 UNIT TABLET PO SCH (11:21)
[2020-10-31] MEDS: FAMOTIDINE 20 MG TABLET PO SCH (11:21)
[2020-10-31] MEDS: INSULIN REGULAR 100 UNIT/ML SUBCUT SCH ×4 (11:21→21:34)
[2020-10-31] MEDS: REMDESIVIR 100 MG in SODIUM CHLORIDE 0.9% 100 ML IV SCH (13:16)
[2020-10-31] MEDS: LACTATED RINGERS 1,000 ML IV SCH (13:19)
[2020-10-31] MEDS: hydrALAZINE 20 MG/1 ML VIAL IV PRN (13:33)
[2020-10-31] MEDS ORDERED: guaiFENesin/DM ER 600-30 MG TABLET PO SCH (21:00)
[2020-10-31] MEDS: ENOXAPARIN 30 MG/0.3 ML SYRINGE SUBCUT SCH (21:35)
[2020-10-31] MEDS: guaiFENesin/CODEINE 5 ML LIQUID PO PRN (21:35)
[2020-10-31] MEDS: AZITHROMYCIN INJ 500 MG in SODIUM CHLORIDE 0.9% 250 ML IV SCH (21:36)
[2020-11-01] MEDS: ALBUTEROL/IPRATROPIUM 3 ML NEB RESP TX SCH ×3 (00:35→13:49)
[2020-11-01] MEDS: guaiFENesin/CODEINE 5 ML LIQUID PO PRN (03:13)
[2020-11-01 05:20] LABS: Basophils % 0.2 % (0.0-0.8); Eosinophils # 0.4 10*3/uL (0.0-0.87); Eosinophils % 2.2 % (0.00-10.9); Hematocrit 35.6 VOL% (42.0-52.0); Hemoglobin 11.7 GM/DL (14.0-18.0); Immature Granulocytes Absolute 0.33 #; Lymphocytes # 1.8 10*3/uL (1.4-4.0); Lymphocytes % 10.7 % (21.2-54.2); Mean Corpuscular HGB Conc 32.9 GM/DL (32-36); Mean Platelet Volume 10.3 FL (9.6-12.0); Neutrophils % 80.9 % (38.7-73.9); Platelet Count 355 T/CUMM (130-400); Red Blood Count 3.87 MC/CUMM (3.8-5.5); Red Cell Distribution Width 12.9 % (9.3-17.3); White Blood Count 16.4 T/CUMM (4-12)
[2020-11-01 05:33] LABS: Calcium 8.6 MG/DL (8.5-10.1); Osmolality,Calculated 292.1 MOS/KG (273-304); Potassium 4.1 MMOL/L (3.5-5.1)
[2020-11-01] MEDS: hydrALAZINE 20 MG/1 ML VIAL IV PRN (05:59)
[2020-11-01 06:15] LABS: Lymphocytes 9 % (20-55); Segmented Neutrophils 88 % (50-85); Total Cells Counted 100
[2020-11-01 06:16] LABS: Anisocytosis 1+; Macrocytosis 1+; Platelet Estimate Normal
[2020-11-01] MEDS: INSULIN REGULAR 100 UNIT/ML SUBCUT SCH ×2 (07:25→12:26)
[2020-11-01] MEDS: hydrALAZINE 25 MG TABLET PO SCH ×2 (09:14→15:20)
[2020-11-01] MEDS: cefTRIAXone 1,000 MG in SODIUM CHLORIDE 0.9% 100 ML IV SCH (09:14)
[2020-11-01] MEDS: ASCORBIC ACID 500 MG TABLET PO SCH (09:14)
[2020-11-01] MEDS: DEXAMETHASONE 4 MG TABLET PO SCH (09:14)
[2020-11-01] MEDS: CHOLECALCIFEROL 1,000 UNIT TABLET PO SCH (09:15)
[2020-11-01] MEDS: FAMOTIDINE 20 MG TABLET PO SCH (09:15)
[2020-11-01] MEDS: lisinopriL 20 MG TABLET PO SCH (09:15)
[2020-11-01] MEDS: ZINC GLUCONATE 50 MG TABLET PO SCH (09:15)
[2020-11-01] MEDS: amLODIPine 10 MG TABLET PO SCH (09:15)
[2020-11-01] MEDS: REMDESIVIR 100 MG in SODIUM CHLORIDE 0.9% 100 ML IV SCH (10:00)
[2020-11-01] MEDS ORDERED: MAGNESIUM HYDROXIDE SUSP 30 ML UDCUP PO ONE (11:14)
[2020-11-01 11:47] VITALS: BP 159/93
[2020-11-01] MEDS ORDERED: DOCUSATE SODIUM 100 MG CAPSULE PO SCH (21:00)
[2020-11-02] MEDS ORDERED: POLYETHYLENE GLYCOL POWDER 17 GM PACK PO SCH (09:00)
== END 2020-11-01 16:00 | disposition home or self-care (01) | DRG 177 ==
LOC: N.ED 14:23 → N.EDINP 18:51 → N.2E 22:30
PROVIDERS: ADMIT Internal Medicine; ATTEND Internal Medicine